=== PATIENT | female | born 1940 | race Native Hawaiian/Other Pacific Islander ===

== ENCOUNTER 2018-03-17 12:08 | Outpatient (CLI) | payer OTHER | END 2018-03-17 19:40 | disposition home or self-care (01) | LOC: RAD 12:08 | DX: Z01.810 Encounter for preprocedural cardiovascular examination (principal) ==

== ENCOUNTER 2019-08-24 09:32 | Outpatient (CLI) | payer OTHER | END 2019-08-24 20:13 | disposition home or self-care (01) | LOC: MAMMO 09:32 | DX: Z12.31 Encounter for screening mammogram for malignant neoplasm of breast (principal) ==

== ENCOUNTER 2020-05-31 07:47 | Outpatient (CLI) | payer OTHER ==
[2020-05-31 08:25] LABS: PLATELET COUNT 184 K/uL (152-353)
[2020-05-31 08:46] LABS: POTASSIUM 3.9 mmol/L (3.6-5.2)
== END 2020-05-31 23:23 | disposition home or self-care (01) ==
LOC: CT 07:47 → LABW 07:47
PROVIDERS: Nurse Practitioner
DX: R59.0 Localized enlarged lymph nodes (principal)
CPT/HCPCS: 36415; 80053; 82306; 84443; 85027; Q9963

== ENCOUNTER 2020-06-18 10:21 | Outpatient (CLI) | payer OTHER | END 2020-06-19 00:39 | disposition home or self-care (01) | LOC: RAD 10:21 | DX: R13.12 Dysphagia, oropharyngeal phase (principal) ==

== ENCOUNTER 2020-07-01 08:56 | Outpatient (CLI) | payer OTHER | END 2020-07-01 22:25 | disposition home or self-care (01) | LOC: US 08:56 | PROVIDERS: Nurse Practitioner | DX: R93.3 Abnormal findings on diagnostic imaging of other parts of digestive tract (principal); E78.2 Mixed hyperlipidemia; R13.12 Dysphagia, oropharyngeal phase; R73.09 Other abnormal glucose | CPT/HCPCS: 36415; 80061; 83036 ==

== ENCOUNTER 2020-12-04 13:40 | Outpatient (CLI) | payer OTHER | END 2020-12-04 22:07 | disposition home or self-care (01) | LOC: INF 13:40 | PROVIDERS: ATTEND Internal Medicine | DX: Z23 Encounter for immunization (principal) | CPT/HCPCS: 96372 ==

== ENCOUNTER 2020-12-19 10:27 | Outpatient (CLI) | payer OTHER | END 2020-12-19 22:18 | disposition home or self-care (01) | LOC: MAMMO 10:27 | PROVIDERS: ATTEND Physician Assistant | DX: Z12.31 Encounter for screening mammogram for malignant neoplasm of breast (principal) ==

== ENCOUNTER 2020-12-26 14:02 | Outpatient (CLI) | payer OTHER | END 2020-12-26 22:00 | disposition home or self-care (01) | LOC: INF 14:02 | PROVIDERS: ATTEND Internal Medicine | DX: Z23 Encounter for immunization (principal) | CPT/HCPCS: 96372 ==

== ENCOUNTER 2021-06-11 12:50 | Outpatient (CLI) | payer OTHER | END 2021-06-11 19:04 | disposition home or self-care (01) | LOC: LABW 12:50 | PROVIDERS: ATTEND Internal Medicine Gastroenterology | DX: K64.0 First degree hemorrhoids (principal) | CPT/HCPCS: 82272 ==

== ENCOUNTER 2021-06-18 08:58 | Outpatient (CLI) | payer OTHER | END 2021-06-18 19:21 | disposition home or self-care (01) | LOC: RESP 08:58 | PROVIDERS: ATTEND Internal Medicine Cardiovascular Disease | DX: I37.1 Nonrheumatic pulmonary valve insufficiency (principal); I34.8 Other nonrheumatic mitral valve disorders; I36.8 Other nonrheumatic tricuspid valve disorders ==

== ENCOUNTER 2023-01-08 09:49 | Outpatient (CLI) | payer OTHER | END 2023-01-08 19:35 | disposition home or self-care (01) | LOC: MAMMO 09:49 | PROVIDERS: ATTEND Obstetrics & Gynecology | DX: Z12.31 Encounter for screening mammogram for malignant neoplasm of breast (principal) ==